=== PATIENT | male | born 1950 | race Two or more races ===

== ENCOUNTER 2021-12-01 12:35 | Emergency (ER) | payer MEDICAID ==
[~2021-12-01] VITALS: Ht 185.4 cm; Wt 98.2 kg
[2021-12-01 13:29] VITALS: BP 108/61
[2021-12-01] MEDS ORDERED: ACET-1080 PO (14:07)
[2021-12-01] MEDS ORDERED: SULF400T11 PO (14:07)
[2021-12-01] MEDS ORDERED: SULF800T8 PO (14:07)
== END 2021-12-01 14:27 | disposition home or self-care (01) ==
LOC: EDBD → ER 12:35
DX: L02.212 Cutaneous abscess of back [any part, except buttock and flank] (principal); E11.9 Type 2 diabetes mellitus without complications; E78.5 Hyperlipidemia, unspecified; I10 Essential (primary) hypertension
CPT/HCPCS: 10060; 87205

== ENCOUNTER 2021-12-03 08:09 | Emergency (ER) | payer MEDICAID ==
[~2021-12-03] VITALS: Ht 172.7 cm; Wt 100.0 kg
[~2021-12-03 08:09] MED LIST: ACET-1080 PO; SULF800T8 PO
[2021-12-03 08:15] VITALS: BP 100/65
== END 2021-12-03 09:41 | disposition home or self-care (01) ==
LOC: ER 08:09
DX: Z48.00 Encounter for change or removal of nonsurgical wound dressing (principal)

== ENCOUNTER 2021-12-08 17:12 | Emergency (ER) | payer MEDICAID ==
[~2021-12-08] VITALS: Ht 185.4 cm; Wt 95.0 kg
[2021-12-08 18:08] VITALS: BP 98/57
== END 2021-12-08 23:36 | disposition left against medical advice (07) ==
LOC: ER 17:12
DX: M54.9 Dorsalgia, unspecified (principal); Z53.21 Procedure and treatment not carried out due to patient leaving prior to being seen by health care provider

== ENCOUNTER 2023-03-22 18:27 | Emergency (ER) | payer MEDICAID ==
[~2023-03-22] VITALS: Ht 185.4 cm; Wt 104.1 kg
[~2023-03-22 18:27] MED LIST changes: +SULF1TAB75 PO; -SULF800T8 PO
[2023-03-22 18:40] VITALS: BP 127/75; PULSE 92; RESP 18; O2SAT 98
[2023-03-22] MEDS ORDERED: ACETAMINOPHEN/CODEINE#3 (300/30mg) TAB PO ONE (19:30)
[2023-03-22] MEDS ORDERED: ACET500T58 PO (20:22)
[2023-03-22] MEDS ORDERED: IBUP-1455 PO (20:22)
[2023-03-22] MEDS ORDERED: BACIOIN15 TOP (20:22)
== END 2023-03-22 23:32 | disposition home or self-care (01) ==
LOC: ER 18:27
DX: S00.83XA Contusion of other part of head, initial encounter (principal); S80.02XA Contusion of left knee, initial encounter; S80.01XA Contusion of right knee, initial encounter; I10 Essential (primary) hypertension; E11.9 Type 2 diabetes mellitus without complications; E78.5 Hyperlipidemia, unspecified; Z79.899 Other long term (current) drug therapy; W01.0XXA Fall on same level from slipping, tripping and stumbling without subsequent striking against object, initial encounter; Y93.89 Activity, other specified; Y92.89 Other specified places as the place of occurrence of the external cause; Y99.8 Other external cause status
CPT/HCPCS: 70450; 70486; 73564